=== PATIENT | male | born 1955 | race Caucasian/White ===

== ENCOUNTER 2017-12-01 13:39 | Emergency (ER) | payer MEDICARE ==
[2017-12-01] MEDS ORDERED: HYDROMORPHONE HCL 2 MG/ML VIAL IVP ONE (14:34)
[2017-12-01] MEDS ORDERED: PROMETHAZINE HCL 6.25 MG in 0.9 % SODIUM CHLORIDE 100ML 100 ML IVPB ONE (14:34)
[2017-12-01 15:06] LABS: BASO % 0.1 % (0-6); EOS % 4.7 % (0-6); GRAN % 59.5 % (47-80); HEMATOCRIT 37.4 % (42.0-52.0); HEMOGLOBIN 11.7 gm/dl (14.0-18.0); LYMPH % 27.9 % (16-45); MEAN CELL VOLUME 94.9 fl (81-97); MEAN CORPUSCULAR HGB CONC 31.3 g/dl (32-36); MONO % 7.8 % (0-9); PLATELET COUNT 182 K/uL (130-400); RED BLOOD COUNT 3.94 M/uL (4.40-5.70); RED CELL DISTRIBUTION WIDTH 13.9 % (11.5-14.5); WHITE BLOOD COUNT W/O DIFF 7.3 K/uL (4.2-12.2)
[2017-12-01 15:11] LABS: MEAN CORPUSCULAR HEMOGLOBIN 29.6 pg (27-33)
[2017-12-01 15:18] LABS: BLOOD UREA NITROGEN 35 mg/dL (8-23); CREATININE 0.9 mg/dL (0.7-1.2); EST GLOMERULAR FILTRATION RATE > 60 mL/min
[2017-12-01 15:21] LABS: GLUCOSE,RANDOM 236 mg/dL (74-109)
[2017-12-01] MEDS ORDERED: 0.9 % SODIUM CHLORIDE 1,000 ML BAG IV ONE (15:41)
--- NOTE | 2017-12-01 16:04 | Emergency Department Record ---
History of Present Illness - General Chief complaint: Extremity Problem Stated complaint: FELL LT SHOULDER/ELBOW Time Seen by Provider: 12/01/17 14:21 Source: Patient Mode of Arrival: Ambulatory Limitations: No limitations - History of Present Illness Initial comments: pt fell in an empty pool while cleaning it 3 days ago injuring his l shoulder and l elbow. the pain and swelling have increased in the elbow. MD Complaint: Extremity pain, Extremity swelling, Joint pain, Joint swelling Onset/Timin -: Days(s) Location: Left, Elbow, Shoulder Severity scale (1-10): 10 Quality: Aching Improves with: Nothing Worsens with: Nothing Associated Symptoms: Denies other symptoms - Related Data Allergies Allergy/AdvReac Type Severity Reaction Status Date / Time cephalexin monohydrate Allergy Severe ANAPHYLAXIS Verified 12/01/17 14:14 [From Keflex] Penicillins Allergy Severe ANAPHYLAXIS Verified 12/01/17 14:14 Travel Screening - Travel/Exposure Within Last 30 Days Have you traveled within the last 30 days?: No - Travel/Exposure Within Last Year Have you traveled outside the [place] in the last year?: No - Additonal Travel Details Have you been exposed to anyone with a communicable illness?: No - Travel Symptoms Symptom Screening: None Review of Systems Reviewed: No additional complaints except as noted below Constitutional: Reports: As per HPI. Denies: Chills, Fever, Malaise, Night sweats, Weakness, Weight change Eyes: Reports: As per HPI. Denies: Eye discharge, Eye pain, Photophobia, Vision change ENT: Reports: As per HPI. Denies: Congestion, Dental pain, Ear pain, Epistaxis , Hearing loss, Throat pain Respiratory: Reports: As per HPI. Denies: Cough, Dyspnea, Hemoptysis, Stridor, Wheezes Cardiovascular: Reports: As per HPI. Denies: Arrhythmia, Chest pain, Dyspnea on exertion, Edema, Murmurs, Orthopnea, Palpitations, Paroxysmal nocturnal dyspnea, Rheumatic Fever, Syncope Endocrine: Reports: As per HPI. Denies: Fatigue, Heat or cold intolerance, Polydipsia, Polyuria Gastrointestinal: Reports: As per HPI. Denies: Abdominal pain, Constipation, Diarrhea, Hematemesis, Hematochezia, Melena, Nausea, Vomiting Genitourinary: Reports: As per HPI. Denies: Dysuria, Frequency, Hematuria, Incontinence, Retention, Testicular pain, Testicular mass, Urgency Musculoskeletal: Reports: As per HPI, Joint swelling. Denies: Arthralgia, Back pain, Gout, Myalgia, Neck pain Skin: Reports: As per HPI. Denies: Bruising, Change in color, Change in hair/ nails, Lesions, Pruritus, Rash Neurological: Reports: As per HPI. Denies: Abnormal gait, Confusion, Headache, Numbness, Paresthesias, Seizure, Tingling, Tremors, Vertigo, Weakness Psychiatric: Reports: As per HPI. Denies: Anxiety, Auditory hallucinations, Depression, Homicidal thoughts, Suicidal thoughts, Visual hallucinations Hematological/Lymphatic: Reports: As per HPI. Denies: Anemia, Blood Clots, Easy bleeding, Easy bruising, Swollen glands Past Medical History - SOCIAL HISTORY Smoking Status: Current every day smoker Alcohol Use: Rare Drug Use: None - RESPIRATORY Hx Respiratory Disorders: Yes Hx Pneumonia: Yes - CARDIOVASCULAR Hx Cardio Disorders: Yes Hx Cardiac Cath: Yes Hx Heart Attack: Yes (5 stents) Hx Hypertension: Yes - NEURO Hx Neuro Disorders: No - GI Hx GI Disorders: No - Hx Genitourinary Disorders: No - ENDOCRINE Hx Endocrine Disorders: Yes Hx Diabetes: Yes (T-2) - MUSCULOSKELETAL Hx Musculoskeletal Disorders: Yes Hx Back Injury: Yes - PSYCH Hx Psych Problems: Yes Hx Depression: Yes - HEMATOLOGY/ONCOLOGY Hx Hematology/Oncology Disorders: No Family Medical History Any Significant Family History?: No Hx Heart Disease: Grandparents *Heart Comment: Uncle Physical Exam - General General Appearance: Alert, Oriented x3, Cooperative, Mild distress - Head Head exam: Normal inspection - Eye Eye exam: Normal appearance, PERRL, EOMI Pupils: Normal accommodation - ENT ENT exam: Normal exam, Mucous membranes moist, Normal external ear exam, Normal orophraynx Ear exam: Normal external inspection. negative: External canal tenderness Nasal Exam: Normal inspection. negative: Discharge, Sinus tenderness Mouth exam: Normal external inspection, Tongue normal Teeth exam: Normal inspection. negative: Dental caries Throat exam: Normal inspection. negative: Tonsillar erythema, Tonsillar exudate - Neck Neck exam: Normal inspection, Full ROM. negative: Tenderness - Respiratory Respiratory exam: Normal lung sounds bilaterally. negative: Respiratory distress - Cardiovascular Cardiovascular Exam: Regular rate, Normal rhythm, Normal heart sounds - GI/Abdominal GI/Abdominal exam: Soft, Normal bowel sounds. negative: Tenderness - Rectal Rectal exam: Deferred - exam: Deferred - Extremities Extremities exam: Normal capillary refill, Tenderness. negative: Normal inspection, Full ROM Image of Full Body: 1 - swelling w erythema, lac , and tenderness 2 - tenderness - Back Back exam: Reports: Normal inspection, Full ROM. Denies: Muscle spasm, Rash noted, Tenderness - Neurological Neurological exam: Alert, CN II-XII intact, Normal gait, Oriented X3 - Psychiatric Psychiatric exam: Normal affect, Normal mood - Skin Skin exam: Dry, Intact, Normal color, Warm Course Vital Signs 12/01/17 12/01/17 14:04 15:34 Temperature 98.3 F Pulse Rate 70 Pulse Rate [ 67 Pulse Ox Probe] Respiratory 18 16 Rate Blood Pressure 102/77 Blood Pressure 108/67 [Right Arm] Pulse Ox 98 98 - Reevaluation(s) Reevaluation #1: 12/01/17 16:44 d/w dr amezcua and miriam Medical Decision Making - Lab Data Result diagrams: 12/01/17 14:44 12/01/17 14:44 Lab Results 12/01/17 12/01/17 Range/Units 14:44 14:44 WBC 7.3 (4.2-12.2) K/uL RBC 3.94 L (4.40-5.70) M/uL Hgb 11.7 L (14.0-18.0) gm/dl Hct 37.4 L (42.0-52.0) % MCV 94.9 (81-97) fl MCH 29.6 (27-33) pg MCHC 31.3 L (32-36) g/dl RDW 13.9 (11.5-14.5) % Plt Count 182 (130-400) K/uL MPV 11.0 H (7.4-10.4) fl Gran % 59.5 (47-80) % Lymphocytes % 27.9 (16-45) % Monocytes % 7.8 (0-9) % Eosinophils % 4.7 (0-6) % Basophils % 0.1 (0-6) % Sodium 143 (136-145) mmol/L Potassium 5.7 H (3.4-4.5) mmol/L Chloride 103 (98-107) mmol/L Carbon Dioxide 22.0 (22-29) mmol/L Anion Gap 18.0 H (7-16) BUN 35 H (8-23) mg/dL Creatinine 0.9 (0.7-1.2) mg/dL Estimated GFR > 60 mL/min Random Glucose 236 H (74-109) mg/dL Calcium 9.1 (8.8-10.2) mg/dL Disposition Disposition: Transfer Clinical Impression: Open fracture of elbow Qualifiers: Encounter type: initial encounter Laterality: left Qualified Code(s): S42.402B - Unspecified fracture of lower end of left humerus, initial encounter for open fracture Cellulitis Qualifiers: Site of cellulitis: extremity Site of cellulitis of extremity: upper extremity Laterality: left Qualified Code(s): L03.114 - Cellulitis of left upper limb Disposition: Acute Care Hospital Transfer Transfer To: [facility] Reason For Transfer: needs orthopedics Accepting Physician: anastasiya pineda Time Discussed w/Accepting Physician: 16:43 Forms: Patient Portal Access Quality - Quality Measures Quality Measures: N/A - Blood Pressure Screening Does Patient Have Any of the Following: No Blood Pressure Classification: Normal BP Reading Systolic Measurement: 102 Diastolic Measurement: 77 Screening for High Blood Pressure: < Normal BP, F/U Not Required > [[id number]]
[2017-12-01] MEDS ORDERED: CLINDAMYCIN 600MG/50ML PREMIX 600 MG/50 ML BAG IVPB SCH (16:45)
--- NOTE | 2017-12-02 09:22 | RADIOLOGY REPORT ---
EXAM: LEFT SHOULDER HISTORY: FELL THREE DAYS AGO. LEFT SHOULDER AND ELBOW PAIN. TECHNIQUE: Three views of the left shoulder were obtained. Comparison: Left elbow series from the same date. FINDINGS: The bones appear intact. There is no visible acute fracture or dislocation. There are mild arthritic changes of the acromioclavicular joint, glenohumeral joint, and greater tuberosity. The visualized ribs appear intact. IMPRESSION: 1. MILD DIFFUSE ARTHRITIC CHANGES. 2. NO ACUTE FRACTURE IDENTIFIED. JOB [facility]BER: [id number] [facility]
--- NOTE | 2017-12-02 09:25 | RADIOLOGY REPORT ---
EXAM: LEFT ELBOW HISTORY: FELL THREE DAYS AGO. LEFT ELBOW PAIN. TECHNIQUE: Four views of the left elbow were obtained. Comparison: None. Encounter: Initial. FINDINGS: There is a minimally displaced fracture involving the tip of the coronoid process of the ulna. A small joint effusion is present. The remaining osseous structures appear intact. There are mild diffuse arthritic changes. Enthesophyte formation is present at the olecranon process. There is mild superficial posterior soft tissue swelling. IMPRESSION: 1. MILDLY DISPLACED FRACTURE INVOLVING THE TIP OF THE CORONOID PROCESS OF THE ULNA. 2. MILD DIFFUSE ARTHRITIC CHANGES. [facility] [id number] [facility]
== END 2017-12-01 18:07 | disposition short-term general hospital (02) ==
LOC: ER 13:39
DX: S52.042A Displaced fracture of coronoid process of left ulna, initial encounter for closed fracture (principal); L03.114 Cellulitis of left upper limb; M25.512 Pain in left shoulder; E11.9 Type 2 diabetes mellitus without complications; I10 Essential (primary) hypertension; I25.2 Old myocardial infarction; F17.210 Nicotine dependence, cigarettes, uncomplicated; W01.0XXA Fall on same level from slipping, tripping and stumbling without subsequent striking against object, initial encounter
CPT/HCPCS: 99285 ×2; 96374; 96365; 96366; 85025; 80048; 73080; 73030; J1170; J2550; J7030